=== PATIENT | female | born 1990 | race Caucasian/White ===

== ENCOUNTER 2019-12-12 19:58 | Emergency (ER) | payer BC, OTHER ==
--- NOTE | 2019-12-12 21:36 | EDM.PDOC ---
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 This is her first preg. and she has been doing well. She states the bleeding started suddenly today. 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 ) HEENT: Reports: No Symptoms Respiratory: Reports: No Symptoms Cardiovascular: Reports: No Symptoms Endocrine: Reports: No Symptoms GI/Abdominal: Reports: Abdominal Pain : Reports: No Symptoms Musculoskeletal: Reports: No Symptoms Skin: Reports: No Symptoms Neurological: Reports: No Symptoms Psychiatric: Reports: No Symptoms ED EXAM, GI/ABD - Physical Exam Exam: See Below Text/Narrative:: pt arrived with a history of vagh bleeding that started this pm. She is not having alot of cramping. She has not been vomiting. She did not do anything extra today. She is here on holiday. Exam Limited By: No Limitations General Appearance: Alert, Anxious, Moderate Distress Ears: Normal TMs Nose: Normal Inspection Throat/Mouth: Normal Inspection Head: Atraumatic Neck: Normal Inspection Respiratory/Chest: No Respiratory Distress Cardiovascular: Regular Rate, Rhythm GI/Abdominal Exam: Soft, Non-Tender (Female) Exam: Deferred, Vaginal Bleeding, Other ( bright red bleeding) Rectal (Female) Exam: Deferred Back Exam: Normal Inspection Extremities: Normal Inspection Course - Vital Signs Last Recorded V/S: Last Vital Signs Temp 36.7 C 12/12/19 20:32 Pulse 119 H 12/12/19 20:32 Resp 18 12/12/19 20:32 BP 136/86 12/12/19 20:32 Pulse Ox 100 12/12/19 20:32 - Orders/Labs/Meds Orders: Active Orders 24 hr Category Date Time Status OB Ltd 1 or More Fetus [US] Stat Exams 12/12/19 20:23 Taken Labs: Laboratory Tests 12/12/19 12/12/19 12/12/19 Range/Units 20:05 20:05 20:05 WBC 17.2 H (4.5-11.0) K/uL RBC 4.49 (3.30-5.50) M/uL Hgb 12.8 (12.0-15.0) g/dL Hct 38.0 (36.0-48.0) % MCV 85 (80-98) fL MCH 29 (27-31) pg MCHC 34 (32-36) % Plt Count 216 (150-400) K/uL Neut % (Auto) 64 (36-66) % Lymph % (Auto) 28 (24-44) % Evangeline % (Auto) 6 (2-6) % Eos % (Auto) 1 L (2-4) % Baso % (Auto) 0 (0-1) % Sodium 136 L (140-148) mmol/L Potassium 2.9 L* (3.6-5.2) mmol/L Chloride 101 (100-108) mmol/L Carbon Dioxide 22 (21-32) mmol/L Anion Gap 15.9 H (5.0-14.0) mmol/L BUN 9 (7-18) mg/dL Creatinine 0.8 (0.6-1.0) mg/dL Est Cr Clr Drug Dosing 104.67 mL/min Estimated GFR (MDRD) > 60 (>60) Glucose 152 H (74-106) mg/dL Calcium 8.4 L (8.5-10.1) mg/dL Total Bilirubin 0.2 (0.2-1.0) mg/dL AST 13 L (15-37) U/L ALT 20 (12-78) U/L Alkaline Phosphatase 78 (46-116) U/L Total Protein 7.4 (6.4-8.2) g/dL Albumin 3.7 (3.4-5.0) g/dL Globulin 3.7 H (2.3-3.5) g/dL Albumin/Globulin Ratio 1.0 L (1.2-2.2) HCG, Quant 52162 H (0-6) mIU/mL Meds: Medications Discontinued Medications Generic Name Dose Route Start Last Admin Trade Name Charity PRN Reason Stop Dose Admin Potassium Chloride 20 meq 12/12/19 22:15 Klor-Con M20 PO 12/12/19 22:16 ONETIME ONE - Re-Assessments/Exams Free Text/Narrative Re-Assessment/Exam: 12/12/19 21:40 pt has a k of 2.9 otherwise her lab work looked good. Departure - Departure Time of Disposition: 22:16 Disposition: Home, Self-Care 01 Condition: Fair Clinical Impression: 14 weeks gestation of , Vagina bleeding, Hypokalemia, Subchorionic bleed - Discharge Information Instructions: Hypokalemia, Vaginal Bleeding During , Second Trimester , [id number], Subchorionic Hematoma Referrals: PCP,None [Primary Care Provider] - Forms: ED Department Discharge Care Plan Goals: pt is to follow with usual obgyn, send copy of lab work and a copy of us to go with pt. rtc if bleeding should get heavy. High k diet, Sepsis Event Note - Evaluation Sepsis Screening Result: No Definite Risk - Focused Exam Vital Signs: Vital Signs Temp Pulse Resp BP Pulse Ox 12/12/19 20:32 36.7 C 119 H 18 136/86 100 12/12/19 20:11 36.7 C 119 H 18 136/86 100 Date Exam was Performed: 12/12/19 Time Exam was Performed: 22:32 - My Orders Last 24 Hours: My Active Orders 12/12/19 20:23 OB Ltd 1 or More Fetus [US] Stat - Assessment/Plan Last 24 Hours: My Active Orders 12/12/19 20:23 OB Ltd 1 or More Fetus [US] Stat
[2019-12-12] MEDS: Potassium Chloride 20 MEQ Tab.ER PO ONE (22:46)
--- NOTE | 2019-12-12 23:08 | CRLUS ---
Arcuate uterine morphology INDICATION: with vaginal bleeding. LMP 09/05/2019. Fourteen weeks 0 days gestational age by LMP. COMPARISON: None. TECHNIQUE: Real-time sykes-scale imaging of the pelvis was performed transabdominally. FINDINGS: A single living intrauterine is identified. The crown-rump length measures 76 mm, giving an estimated gestation age of 13 weeks 5 days and an estimated due date of 06/13/2020.. This is consistent with clinical dates. The placenta is fundal. Embryonic heart rate measures 158. The uterus has an arcuate or possibly a partial bicornuate morphology. There are two heterogeneous hypoechoic subchorionic hemorrhages in the uterine fundus measuring 6.4 x 4.7 x 5.3 cm on the right and 7.7 x 5.1 x 5.7 cm on the left. The cervix is closed and the myometrium appears normal. There is no pelvic free fluid. IMPRESSION: 1. Single living intrauterine . Size is consistent with dates. 2. Arcuate or partial bicornuate uterine morphology. 3. Two subchorionic hemorrhages as described above. The cervix is closed. Dictated by Genny Cedeño MD @ Dec 12 2019 10:55PM Signed by Dr. Genny Cedeño @ Dec 12 2019 11:07PM
== END 2019-12-12 22:46 | disposition home or self-care (01) ==
LOC: JP.ED 19:58
DX: O20.8 Other hemorrhage in early pregnancy (principal); O99.282 Endocrine, nutritional and metabolic diseases complicating pregnancy, second trimester; E87.6 Hypokalemia; Z3A.14 14 weeks gestation of pregnancy
CPT/HCPCS: 36415; 76815; 80053; 84702; 85025; 99284; A9270